=== PATIENT | male | born 1970 | race Hispanic/Latino ===

== ENCOUNTER 2017-07-24 07:31 | Emergency (ER) | payer OTHER ==
[2017-07-24 07:38] VITALS: O2SAT 96
[2017-07-24] MEDS ORDERED: Lidocaine 1% Inj (20ml) ONE (07:46)
[2017-07-24] MEDS ORDERED: Bacitracin 500 Units/gm Oint Foilpak UD ONE (07:47)
--- NOTE | 2017-07-24 07:59 | C.PDOC ---
History Of Present Illness 47 year old male, with no past medical history, presents to the ED with complaints of a laceration to the left thumb while using a kitchen knife. Patient states knife was clean and he is up to date on his immunizations. He notes numbness to the tip of the left thumb at site of laceration. Patient denies any PMH, allergies. He denies any other complaints at this time. Chief Complaint (Nursing): Abnormal Skin Integrity History Per: Patient History/Exam Limitations: no limitations Onset/Duration Of Symptoms: Hrs Current Symptoms Are (Timing): Still Present Location Of Injury: Left: Hand (left thumb laceration ) Quality Of Symptoms: denies: Draining Recent travel outside of the [place]: No Past Medical History Reviewed: Historical Data, Nursing Documentation, Vital Signs Vital Signs: Last Vital Signs Temp 97.8 F 07/24/17 08:52 Pulse 59 L 07/24/17 08:52 Resp 17 07/24/17 08:52 BP 133/71 07/24/17 08:52 Pulse Ox 96 07/24/17 09:56 Family History: States: Unknown Family Hx - Social History Hx Alcohol Use: No Hx Substance Use: No - Immunization History Hx Tetanus Toxoid Vaccination: Yes Review Of Systems Constitutional: Negative for: Fever, Chills Cardiovascular: Negative for: Chest Pain Respiratory: Negative for: Shortness of Breath Gastrointestinal: Negative for: Nausea, Vomiting Skin: Positive for: Other (laceration to left thumb ) Neurological: Positive for: Numbness (to tip of left thumb ) Physical Exam - Physical Exam Appears: Non-toxic, No Acute Distress Skin: Warm, Dry, Other (2 cm laceration to proximal phalanx on the palmar side of the left thumb ) Head: Atraumatic Eye(s): bilateral: Normal Inspection Chest: Symmetrical, No Deformity Cardiovascular: Rhythm Regular Extremity: Normal ROM (Full ROM of left thumb), Capillary Refill (good capillary refill, less than two seconds ), No Swelling Neurological/Psych: Oriented x3, Normal Speech, Normal Cognition ED Course And Treatment O2 Sat by Pulse Oximetry: 96 (room air ) Progress Note: Following laceration repair, bacitracin was applied and wound was dressed in a steile fashion. Patient instructed to follow up with hand specialist. Laceration - Laceration Repair Hand Laceration Wound Length (In cm): 2cm Description Of Wound: Linear Wound Cleansed With: Betadine, Sterile Saline Anesthesia: Lidocaine 1% Wound Examination: Irrigated With Saline, No FB With Wound Exploration, No Tendon Injury With Wound Exploration Wound Debridement/Revision: Wound Debrided Wound Closure: Suture (5 sutures) Suture Technique And Material Used: Running, Nylon (4-0 ) Wound Complexity: Simple Disposition - Disposition Referrals: Mona Samaniego MD [Staff Provider] - Disposition: HOME/ ROUTINE Disposition Time: 08:30 Condition: STABLE Additional Instructions: Follow up with Hand specialist within 2-3 days. Return to ED if feel worse. Suture removal in 10 days. Instructions: Finger Laceration (ED) Forms: [employer] (Greenlandic) - Clinical Impression Clinical Impression: Finger laceration - Scribe Statement The provider has reviewed the documentation as recorded by the Scribe Sallie Farias All medical record entries made by the Scribe were at my direction and personally dictated by me. I have reviewed the chart and agree that the record accurately reflects my personal performance of the history, physical exam, medical decision making, and the department course for this patient. I have also personally directed, reviewed, and agree with the discharge instructions and disposition.
[2017-07-24 08:54] VITALS: BP 133/71; PULSE 59; RESP 17; TEMP 97.8
== END 2017-07-24 08:53 | disposition home or self-care (01) ==
LOC: C.ER 07:31 → EDBD 07:31 → C.ER 08:53
DX: S61.012A Laceration without foreign body of left thumb without damage to nail, initial encounter (principal); W26.0XXA Contact with knife, initial encounter

== ENCOUNTER 2017-08-03 08:42 | Emergency (ER) | payer OTHER ==
[2017-08-03 09:00] VITALS: BP 126/77; PULSE 57; RESP 18; TEMP 98; O2SAT 96
[2017-08-03] MEDS ORDERED: Bacitracin 500 Units/gm Oint Foilpak UD TOP ONE (09:28)
--- NOTE | 2017-08-03 09:30 | C.PDOC ---
Time Seen by Provider: 08/03/17 09:22 Chief Complaint (Nursing): Suture/Staple Removal History Per: Patient Onset/Duration Of Symptoms: Laceration Current Symptoms Are (Timing): Better Location Of Injury: Left: Hand (thumb) Quality Of Symptoms: denies: Painful, Swollen, Draining Severity: Mild Additional History Per: Prior Records Past Medical History Reviewed: Historical Data, Nursing Documentation, Vital Signs Vital Signs: Last Vital Signs Temp 98 F 08/03/17 08:54 Pulse 57 L 08/03/17 08:54 Resp 18 08/03/17 08:54 BP 126/77 08/03/17 08:54 Pulse Ox 96 08/03/17 08:54 - Medical History PMH: No Chronic Diseases Family History: States: Unknown Family Hx - Social History Hx Alcohol Use: No Hx Substance Use: No - Immunization History Hx Tetanus Toxoid Vaccination: Yes Hx Influenza Vaccination: No Hx Pneumococcal Vaccination: No Review Of Systems Except As Marked, All Systems Reviewed And Found Negative. Constitutional: Negative for: Fever, Weakness Cardiovascular: Negative for: Chest Pain Respiratory: Negative for: Shortness of Breath Gastrointestinal: Negative for: Vomiting, Abdominal Pain Musculoskeletal: Negative for: Neck Pain, Hand Pain Skin: Negative for: Rash Neurological: Negative for: Weakness, Numbness Physical Exam - Physical Exam Appears: Non-toxic, No Acute Distress Skin: Normal Color, Warm, Dry Head: Atraumatic, Normacephalic Eye(s): bilateral: PERRL, EOMI Neck: Normal ROM, Supple Extremity: Normal ROM, No Tenderness, Capillary Refill (wnl), No Swelling, Other (Healing laceration on volar aspect of left thumb closed with sutures) Extremity: Bilateral: Normal Color And Temperature Pulses: Left Radial: Normal Neurological/Psych: Oriented x3, Normal Motor, Normal Sensation ED Course And Treatment O2 Sat by Pulse Oximetry: 96 Pulse Ox Interpretation: Normal Progress Note: Sutures were removed without difficulty. Disposition Counseled Patient/Family Regarding: Diagnosis, Need For Followup - Disposition Referrals: [facility] [Outside] Disposition: HOME/ ROUTINE Disposition Time: 09:31 Condition: STABLE Additional Instructions: Follow up in the clinic. Return to the ER if you develop redness, swelling, pus drainage, worsening of symptoms or if you have any other concerns. Instructions: Stitches Removal (ED) Forms: [employer] (Montenegrin) - Clinical Impression Clinical Impression: Removal of suture
[2017-08-03] MEDS ORDERED: Bacitracin 500 Units/gm Oint Foilpak UD ONE (09:36)
== END 2017-08-03 09:37 | disposition home or self-care (01) ==
LOC: C.ER 08:42
DX: Z48.02 Encounter for removal of sutures (principal)